=== PATIENT | male | born 1955 | race Caucasian/White ===

== ENCOUNTER → 2016-03-10 | Day surgery (SDC) | payer BC ==
[2016-03-08 09:44] VITALS: BMI 30.8
[~2016-03-10] MED LIST: BUPIVACAINE 0.25%-EPINEPHRINE 1:200,000 30 ML INF ONE; DEXAMETHASONE 4 MG/ML VIAL IV PRN; DEXAMETHASONE 4 MG/ML VIAL ONE; DIAZEPAM 5 MG TAB PO PRN; FENTANYL 100 MCG/2 ML VIAL IV PRN; FENTANYL 100 MCG/2 ML VIAL ONE; HYDROCODONE 5 MG/ACETAMIN 325 MG TAB PO PRN; KETOROLAC TROMETH 30 MG/ML VIAL IV PRN; LABETALOL 20 MG/4 ML SYRINGE IV PRN; LR 1,000 ML IV ONE; LR 1,000 ML IV SCH; MIDAZOLAM 2 MG/2 ML VIAL ONE; NS 1,000 ML IV SCH; NS 250 ML IV SCH; ONDANSETRON HCL 4 MG/2 ML VIAL IV PRN; ONDANSETRON HCL 4 MG/2 ML VIAL ONE; PROPOFOL 200 MG/20 ML VIAL IV ONE; SCOPOLAMINE TRANSDERMAL PATCH TOP PRN; hydrALAZINE 20 MG/ML VIAL IV PRN
--- NOTE | 2016-03-10 08:16 | PCM.DCS92 ---
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 Acute M23.301 - OTH MENISCUS DERANGEMENTS, UNSP LATERAL MENISCUS, LEFT KNEE [id number] Physician Follow up/Referrals: Gumaro Huynh MD [Staff Physician] - Listed Time Additional Instructions: Instructions given: 03/10/16 Prescriptions (given at the office) Diet as tolerated Discharge Instructions: * Apply ice to the surgical site for 15-20 minutes out of each hour while awake for the first 2 days post-op, then apply as often as needed to control swelling and pain * Elevate the surgical extremity while sitting or lying down * Keep Bandage clean and dry * May shower after Physical Therapy appointment * Take stool softener while taking pain medication * Ambulate weight bearing as tolerated * No Driving until cleared Follow up in office as scheduled - Call office for any additional concerns. ([phone]) Follow up with Physical therapy as scheduled
--- NOTE | 2016-03-10 09:56 | HIMOPRPT ---
PREOPERATIVE DIAGNOSIS: Left knee medial meniscus tear, lateral meniscus tear, and tricompartmental osteoarthritis. POSTOPERATIVE DIAGNOSIS: Same PROCEDURES: Left knee: 1. Arthroscopic subtotal medial meniscectomy. 2. Partial lateral meniscectomy 3. Limited synovectomy. 4. Chondroplasty of the medial femoral condyle and patellofemoral joint ANESTHESIA: General. SURGEON: Gumaro Huynh MD. POULTRY TRIMMER: DARINEL Banuelos. SPECIMENS: None. COMPLICATIONS: None. TOURNIQUET TIME: 18 minute at 250 millimeters of mercury. IMPLANTS: None. FINDINGS: Grade 2 and 3 changes to the posterior patella and weight-bearing surface on all condyle and tibial plateau medially. Grade 1 changes to the lateral femoral condyle with grade 1 and 2 changes to the lateral tibial plateau. A small radial tear and horizontal cleavage tear of the posterior horn lateral meniscus extending to the midbody. Complex tear of the posterior horn medial meniscus extending radially near the midbody junction through the meniscal capsular junction. Significant synovitis involving the suprapatellar pouch as well as medial lateral gutters. SIGNIFICANT HISTORY, INDICATIONS, AND CONSENT: Jeramie is a 61-year-old active male with long-standing history of knee pain and swelling as well as mechanical symptoms recalcitrant to conservative treatment, who wished to proceed with surgical intervention prior to consideration of total knee replacement for potential improvement in pain, swelling, and mechanical symptoms. Consent was obtained. OPERATION IN DETAIL: The patient was seen in the preop holding area. The left knee was signed. Consent was reviewed. Questions were answered. H and P updated. SCD placed on the contralateral lower extremity. The patient was taken to operating room, placed in supine position on the operating table. Anesthesia placed monitoring devices and performed LMA intubation. The left lower extremity had a tourniquet placed high up on the thigh with the contralateral lower extremity in a well leg valencia and the right leg in the leg valencia. The lower extremity was then sterilely prepped and draped in usual orthopedic fashion. Time-out was performed. Patient received prophylactic antibiotics. Consensus was reached amongst participants in the OR suite. Next, Esmarch was used to exsanguinate the limb. Tourniquet raised to 250 millimeter of mercury. Standard anteromedial and lateral as well as superomedial outflow portals were created. Diagnostic arthroscopy was then performed. The suprapatellar pouch revealed extensive synovitis. Patellofemoral joint was inspected and grade 2 and 3 changes were noted on the posterior patella and trochlea. Medial and lateral gutters also revealed significant synovitis with no loose bodies. Intercondylar notch was entered and ACL and PCL probed and found to be intact. The lateral compartment of the knee was entered with a small radial tear of the posterior horn lateral meniscus along with a horizontal cleavage tear extending from the posterior horn to the midbody. This was removed with a combination of Shaver and biters removing the inferior leaflet of the horizontal cleavage tear and radial component. This was then contoured in the medial compartment of the knee was entered with slight trephination of the deep MCL under valgus stress to slightly open the medial compartment of the knee. Grade 2 and 3 changes were noted on the weight-bearing surface the medial femoral condyle with grade 2 changes on the medial tibial plateau. There were grade 1 changes to the lateral femoral condyle as well as grade 1 and 2 changes to the lateral tibial plateau. Inspection of the medial meniscus revealed a complex tear with primarily a large radial component extending at the midbody junction through the entirety of the meniscus with orthogonal cleavage component involving the posterior horn. This was irreparable and a subtotal medial meniscectomy was performed contouring the meniscus anteriorly. This was probed and found to be stable. We then performed a limited synovectomy of the suprapatellar pouch as well as medial and lateral gutters. A chondroplasty was performed on the medial femoral condyle weight-bearing surface removing unstable cartilaginous flaps and smoothing rough edges. This was repeated in the posterior patella and trochlea. The knee was then thoroughly lavaged and instruments removed. Incision sites were closed with 4-0 nylon suture. Tourniquet was released. The subcutaneous tissue was injected with 0.25% Marcaine at the incision sites and closed with 3-0 nylon suture. Sterile soft tissue dressings were placed. Patient was aroused by Anesthesia and taken to Postanesthesia Care Unit in stable condition. PLAN: The patient will be discharged home when okay with Anesthesia. Prescriptions were given for p.r.n. pain, constipation, nausea, and vomiting. He will return to clinic postop day 10 for suture removal wound check. Begin physical therapy for quad strengthening and range of motion on postop day 3. Recommend ASA 325 mg PO QD x14 days for DVT chemoprophylaxis.
[2016-03-10 11:05] VITALS: TEMP 97.4
--- NOTE | 2016-03-10 11:11 | SC.ANESPOS ---
Post-Anesthesia Note LOC: Fully Awake Post-Anesthesia Assessment: Awake, Returned to Baseline, Hemodynamically Stable , Pain Control Adequate Phase I & II Recovery Complete: Yes Apparent Anesthesia Complication: No : N - Vital Signs Blood Pressure: 138/83 Pulse: 73 Resp Rate: 16 O2 Sat: 93 Temp: 97.4 F
[2016-03-10 12:10] VITALS: PULSE 64
[2016-03-10 12:11] VITALS: BP 128/70
== END ==
LOC: CPSC 08:31
PROVIDERS: ATTEND Orthopaedic Surgery
PROC: 0SBD4ZZ Excision of Left Knee Joint, Percutaneous Endoscopic Approach (ICD-10-PCS; 2016-03-10)
PROC: 0SBD4ZZ Excision of Left Knee Joint, Percutaneous Endoscopic Approach (ICD-10-PCS; principal; 2016-03-10 09:30)
DX: S83.282A Other tear of lateral meniscus, current injury, left knee, initial encounter (principal); S83.272A Complex tear of lateral meniscus, current injury, left knee, initial encounter; M17.12 Unilateral primary osteoarthritis, left knee; M65.862 Other synovitis and tenosynovitis, left lower leg; I10 Essential (primary) hypertension; K21.9 Gastro-esophageal reflux disease without esophagitis; Z79.899 Other long term (current) drug therapy; Z86.010 Personal history of colon polyps; X58.XXXA Exposure to other specified factors, initial encounter
CPT/HCPCS: 29880; J1100; J2250; J2405; J2704; J3010; J3490